=== PATIENT | female | born 1955 | race Caucasian/White ===

== ENCOUNTER 2018-06-10 12:07 | Observation (INO) | payer MEDICARE ==
[~2018-06-10] VITALS: Ht 152.4 cm; Wt 75.0 kg
--- NOTE | ~2018-06-10 | OP ---
PATIENT NAME: JOB TURNER MEDICAL RECORD: [id number] :51 LOCATION:[facility] ADMISSION DATE:06/10/18 SURGEON: SY STEWART MD DATE OF OPERATION: 06/12/2018 PROCEDURES: 1. PTCA stent RCA. 2. Left heart catheterization. 3. Selective coronary angiography. 4. Left ventriculogram. 5. CHILD angiography. 6. Vein graft angiography. INDICATION: Angina and coronary artery disease. PROCEDURE PERFORMED: After informed consent was obtained and after a detailed description of risks, benefits as well as alternative therapies, the patient elected to proceed with angiogram and angioplasty. The right femoral area was prepped and draped in normal sterile fashion. Right femoral artery was cannulated via modified Seldinger technique with placement of 6-Turkmen sheath. All catheters exchanged through this sheath. FINDINGS: Left ventriculogram was performed in standard 30-degree EASTMAN view, reveals good cardiac wall motion throughout all segments. Overall ejection fraction estimated at 70%. SELECTIVE CORONARY ANGIOGRAPHY: 1. Left main is with no significant angiographic disease. 2. Left anterior descending is closed in the mid vessel. 3. Left circumflex is closed in mid vessel. 4. CHILD to the LAD is patent. 5. Vein graft to the LAD diagonal is patent. 6. Vein graft to the circumflex is patent. 7. The right coronary artery has previously placed stent in the PDA. This is widely patent. There is greater than 70% stenosis in the PLV. PTCA STENT OF THE PLV: Stent used was a 2.5 x 22 mm Leander. Result was 0% residual stenosis. OVERALL IMPRESSION: Successful percutaneous transluminal coronary angioplasty stent of the right coronary artery going from 70+ percent initial stenosis to 0% residual. TRANSINT:[id number] Voice Confirmation ID: [id number] DOCUMENT ID: [id number] SY STEWART MD CC: [id number] DICTATION DATE: 06/12/18 0944 RIVET CATCHER: 06/12/18 1121 [place] [address]
--- NOTE | ~2018-06-10 | DS ---
PATIENT:JOB TURNER :51 MEDICAL RECORD: [id number] DISCHARGE SUMMARY ADMISSION DATE: 06/10/18 DISCHARGE DATE: 06/12/18 DATE OF DISCHARGE: 06/12/2018 DISCHARGE DIAGNOSES: 1. Angina. 2. Coronary artery disease. 3. Percutaneous transluminal coronary angioplasty stent right coronary artery this admission. 4. Hypertension. 5. Hyperlipidemia. HOSPITAL COURSE: Mrs. Turner presents with anginal symptomatology, found to have significant disease of the RCA, underwent successful PTCA stent of the RCA, discharged home with no change in her medications as she already on aspirin and Plavix. Follow up with [facility] in [facility] month. TRANSINT:[id number] Voice Confirmation ID: [id number] DOCUMENT ID: [id number] SY STEWART MD CC: [id number] DICTATION DATE: 06/12/18941 STACKER ATTENDANT: 06/13/18 0138 DIS IN 06/12/18 [place] [id number] [place] [id number]
--- NOTE | ~2018-06-10 | HEMODYNAMI ---
PATIENT:JOB TURNER MEDICAL RECORD: [id number] : 51 LOCATION:[facility] D.2120 ADMISSION DATE: 06/10/18 Generatedon:06/12/20189:47 Patient name: JOB TURNER Patient #: [id number] SSN: : 1955 Date of study: 06/12/2018 Page: Of Hemodynamic Procedure Report Patient Data Patient Demographics Procedure consent was obtained First Name: JOB Gender: Female Last Name: JOHNNY : 1955 Middle Initial: A Age: 62 year(s) Patient #: [id number] Race: Unknown Additional ID: [id number] Contact details Address: [place] [address] State: [place] City: [place] Zip code: [address] Past Medical History Allergies Allergen Reaction Date Comments Reported Codeine 06/12/2018 Admission Admission Data Admission Date: 06/10/2018 Admission Time: 15:05 Room #: [facility] Procedure Procedure Types Cath Procedure Diagnostic Procedure [facility] w/Coronaries PCI Procedure Coronary Stent Coronary Stent Initial Procedure Description Procedure Date Procedure Date: 06/12/2018 Procedure Start Time: 9:29 Procedure End Time: 9:43 Procedure Staff Name Function Moncho Shay MD Performing Physician Juanita Blackmon RT Monitor Jae Estrada RT Scrub Jackson Robertson RN Nurse Procedure Data Cath Procedure Fluoroscopy Diagnostic fluoroscopy Total fluoroscopy Time: 4.4 time: 4.4 min min Diagnostic fluoroscopy Total fluoroscopy dose: 749 dose: 749 mGy mGy Contrast Material Contrast Material Type Amount (ml) Isovue 300 93 Entry Location Entry Primary Successful Side Size Upsize Upsize Entry Closure Succes sful Closure Location (Fr) 1 (Fr) 2 (Fr) Remarks Device Remarks Femoral Right 5 Fr 6 Fr Exoseal artery Short Diagnostic catheters Device Type Used For End Catheter Placement MULTIPACK Pigtail 5 Fr LV Angiography catheter MULTIPACK JL 4.0 5Fr Left Coronary catheter Angiography MULTIPACK 3DRC 5Fr Right Coronary catheter Angiography DIAGNOSTIC AR2 MOD 5 Fr SVG Angiography catheter ([id number]) Procedure Complications No complications Procedure Medications Medication Administration Route Dosage 0.9% NaCl I.V. 100 ml/hr Oxygen etCO2 Nasal cannula 2 l/min Heparin Flush Bag added to field 2 bags (1000units/500ml NS) Lidocaine 2% added to field 20 Versed I.V. 2 mg Fentanyl I.V. 100 mcg Versed I.V. 1 mg Heparin Bolus I.V. 4000 units Integrilin (Bolus I.V. 6.8 ml 2mg/ml) Integrilin (Bolus wasted 3.2 ml 2mg/ml) Plavix P.O. 600 mg Hemodynamics Rest Heart Rate: 69 (bpm) Snapshots Pre Cath Intra NCS Post Cath Vital Signs Time Heart Resp SPO2 etCO2 NIBP (mmHg) Rhythm Pain Sedation Rate (ipm) (%) (mmHg) Status Level (bpm) 8:35:53 69 13 98 44.7 118/78(101) NSR 0 (11) 10(A) , No pain 8:39:57 67 17 96 24.2 122/80(102) NSR 0 (11) 10(A) , No pain 8:43:59 69 19 95 27.2 131/96(111) NSR 0 (11) 10(A) , No pain 8:48:06 68 11 95 22.7 132/83(116) NSR 0 (11) 10(A) , No pain 8:52:17 69 11 95 13.6 136/77(121) NSR 0 (11) 10(A) , No pain 8:56:28 70 12 96 42.4 133/79(117) NSR 0 (11) 10(A) , No pain 9:00:36 74 14 96 47.7 133/85(107) NSR 0 (11) 10(A) , No pain 9:04:44 75 12 96 47.7 132/83(109) NSR 0 (11) 10(A) , No pain 9:08:52 73 13 96 46.9 129/85(108) NSR 0 (11) 10(A) , No pain 9:12:57 70 13 96 21.9 134/88(105) NSR 0 (11) 10(A) , No pain 9:17:07 70 13 97 27.2 129/80(109) NSR 0 (11) 10(A) , No pain 9:21:17 69 10 93 30.3 129/77(114) NSR 0 (11) 10(A) , No pain 9:25:21 68 19 95 13.6 138/98(118) NSR 0 (11) 10(A) , No pain 9:29:29 74 19 95 46.2 148/99(124) NSR 0 (11) 9(A) , No pain 9:33:41 74 19 96 41.6 139/93(119) NSR 0 (11) 9(A) , No pain 9:37:49 71 11 96 0 136/100(114) NSR 0 (11) 10(A) , No pain 9:41:57 77 13 97 8.3 144/91(114) NSR 0 (11) 10(A) , No pain Medications Time Medication Route Dose Verified Delivered Reason Notes Effectiveness by by 8:34:08 0.9% NaCl I.V. 100 Jackson Jackson Per physician ml/hr Marcelo Robertson RN RN 8:34:17 Oxygen etCO2 2 Jackson Jackson for low 02 sats Nasal l/min Marcelo Robertson cannula RN RN 8:34:29 Heparin Flush added 2 Jackson Jackson used for Bag to bags Marcelo Robertson procedure (1000units/500ml RN RN NS) 8:34:40 Lidocaine 2% added 20ml Jackson Jackson for local to vial Marcelo Robertson anesthetic RN RN 9:20:18 Versed I.V. 2 mg Jackson Jackson for sedation Marcelo Robertson RN RN 9:20:27 Fentanyl I.V. 100 Jackson Jackson for sedation mcg Marcelo Robertson RN RN 9:29:53 Versed I.V. 1 mg Jackson Jackson for sedation Marcelo Robertson RN RN 9:38:44 Heparin Bolus I.V. 4000 Jackson Jackson for units Marcelo Robertson anticoagulation RN RN 9:39:01 Integrilin I.V. 6.8 Jackson Jackson for (Bolus 2mg/ml) ml Marcelo Robertson antiplatelet RN RN therapy 9:39:11 Integrilin wasted 3.2 Jackson Jackson to sharp's (Bolus 2mg/ml) ml Marcelo Robertson RN RN 9:45:35 Plavix P.O. 600 Jackson Paz for mg Marcelo Robertson antiplatelet RN RN therapy Procedure Log Time Note 8:18:42 Diagnostic Cath Status : Elective 8:19:10 Jae Estrada RT(R) sent for patient. Start room use. 8:19:10 Time tracking: Regular hours (M-F 7:00 - 5:00) 8:19:15 Plan of Care:Hemodynamics will remain stable., Cardiac rhythm will remain stable., Comfort level will be maintained., Respiratory function will remain adequate., Patient/ family verbilizes understanding of procedure., Procedure tolerated without complication., Recovers from procedure without complications.. 8:23:15 Patient received from Med II to [facility] 2 Alert and oriented. Tansferred to table in Supine position. 8:23:17 Warm blankets applied, and gail hugger turned on for patient comfort. 8:23:17 Correct patient and procedure confirmed by team. 8:23:20 Signed procedure consent form obtained from patient. 8:23:22 ECG and BP/O2 sat monitors applied to patient. 8:34:08 0.9% NaCl 100 ml/hr I.V. was administered by Jackson Robertson RN; Per physician; 8:34:17 Oxygen 2 l/min etCO2 Nasal cannula was administered by Jackson Robertson RN; for low 02 sats; 8:34:29 Heparin Flush Bag (1000units/500ml NS) 2 bags added to field was administered by Jackson Robertson RN; used for procedure; 8:34:40 Lidocaine 2% 20ml vial added to field was administered by Jackson Robertson RN; for local anesthetic; 8:34:47 Vital chart was started 8:45:03 Baseline sample Acquired. 8:45:06 Rhythm: sinus rhythm 8:45:08 Full Disclosure recording started 8:45:17 H&P Date Dictated: 06/12/2018 Within 30 days and on chart.. 8:45:18 Pre-procedure instructions explained to patient. 8:45:19 Pre-op teaching completed and patient verbalized understanding. 8:45:21 Family in patients room. 8:45:23 Patient NPO since Midnight. 8:45:29 Patient allergic to Codeine 8:45:33 Is the patient allergic to Iodine/contrast media? No. 8:45:37 Was the patient premedicated? No 8:54:25 Is patient on blood thinner?Yes 8:54:40 Patient diabetic? No. 8:54:41 ----Pre-sedation anethsthesia assessment.---- 8:54:44 Previous problem with sedation/anesthesia? No ? 8:54:45 Snore? No 8:54:46 Sleep apnea? No 8:54:47 Deviated septum? No 8:54:49 Opens mouth fully? Yes 8:54:50 Sticks out tongue? Yes 8:54:52 Airway obstruction? No ? 8:54:54 Dentures? No ? 8:54:56 Pre procedure: right dorsailis pedis pulse 2+ Normal; easily identifiable; not easily obliterated 8:54:59 Patient pain scale 0/10 ?. 8:55:03 IV patent on arrival in right antecubital with 0.9% NaCl at 10ml/hr. 8:55:13 Lab results completed and on chart. 8:55:17 Right groin area was prepped with chlora-prep and draped in sterile fashion 8:55:18 Alarms reviewed by R. N. 8:55:18 Sharps counted by scrub and verified by R.N. 8:55:23 Use device set Femoral Dx 8:55:24 ACIST Syringe (48896) opened to sterile field. 8:55:25 Bag Decanter (2002S) opened to sterile field. 8:55:25 Medline Cath Pack ([id number]) opened to sterile field. 8:55:26 DIAGNOSTIC WIRE .035 260cm J wire (269228) opened to sterile field. 8:55:27 ACIST Hand Control (88436) opened to sterile field. 8:55:28 ACIST Manifold (29694) opened to sterile field. 8:55:28 DIAGNOSTIC Multipack 5Fr catheter set (ES2395) opened to sterile field. 8:55:29 Tegaderm 4 x 4 (1626W) opened to sterile field. 8:55:31 SHEATH 5FR Calera (QPW507) opened to sterile field. 9:19:04 Physician arrived 9:19:06 --------ALL STOP TIME OUT------ 9:19:06 Final Timeout: patient, procedure, and site verified with staff and physician. All members of the team are in agreement. 9:19:09 Right groin site verified by team. 9:19:14 Maximum allowable Isovue 300 dose 300ml. Physician notified. (300ml for normal creatinines. For patients with creatinine of 1.7 or higher multiply weight(kg) x 5 divided by creatinine.) 9:19:20 Fire Safety Assessment: A--An alcohol-based skin anteseptic being used preoperatively., C--Open oxygen or nitrous oxide is being used., D--An ESU, laser, or fiber-optic light is being used. 9:19:23 Physical assessment completed. ASA score P 2 - A patient with mild systemic disease as per Moncho Shay MD. ::27 Sedation plan: IV Moderate Sedation Medication:Versed, Fentanyl 9::18 Versed 2 mg I.V. was administered by Jackson Robertson RN; for sedation; ::27 Fentanyl 100 mcg I.V. was administered by Jackson Robertson RN; for sedation; 9:28:47 Procedure started. 9:29:10 Local anesthetic to right femoral artery with Lidocaine 2% by Moncho Shay MD.INITIAL ACCESS ONLY 9:29:19 A 5 Fr sheath was inserted into the Right Femoral artery 9::27 A MULTIPACK Pigtail 5 Fr catheter was advanced over the wire and used for LV Angiography. 9:29:34 LV angiography performed. 9:29:36 LV gram done using EASTMAN 9:29:45 Zero performed for pressure channel P1 9:29:53 Versed 1 mg I.V. was administered by Jackson Robertson RN; for sedation; 9:30:15 EF : 70 % 9:30:21 Catheter removed. 9:30:27 A MULTIPACK JL 4.0 5Fr catheter was advanced over the wire and used for Left Coronary Angiography. 9:30:30 LCA angiography performed. 9:31:11 Catheter removed. 9:31:28 A MULTIPACK 3DRC 5Fr catheter was advanced over the wire and used for Right Coronary Angiography. 9:32:14 CHILD to LAD angiography performed. 9:32:30 RCA angiography performed. 9:33:26 SVG to Circ angiography performed. 9:33:54 INFLATOR Merit BasixCompak (HI3828) opened to sterile field. 9:33:54 SHEATH 6FR Calera (RTK736) opened to sterile field. 9:33:55 CHOICE PT Extra Support 182cm wire ([id number]) opened to sterile field. 9:34:11 Catheter removed. 9:34:30 A DIAGNOSTIC AR2 MOD 5 Fr catheter ([id number]) was advanced over the wire and used for SVG Angiography. 9:34:43 SVG to Diag angiography performed. 9:34:45 Catheter removed. 9:35:05 Sheath upsized to a 6 Fr Short. 9:35:49 GUIDE 6FR AR 2.0 catheter ([id number]) opened to sterile field. 9:35:59 6 Fr AR 2 guide catheter was inserted over the wire 9:36:03 CPTES wire advanced. 9:38:44 Heparin Bolus 4000 units I.V. was administered by Jackson Robertson RN; for anticoagulation; 9:39:01 Integrilin (Bolus 2mg/ml) 6.8 ml I.V. was administered by Jackson Robertson RN; for antiplatelet therapy; 9:39:11 Integrilin (Bolus 2mg/ml) 3.2 ml wasted was administered by Jackson Robertson RN; to sharp's; 9:39:33 Place stent Inflation Number: 1 A DICK RX 2.5 x 22 stent ([id number]) was prepped and advanced across the R PAV. The stent was deployed at 15 LUIS for 0:14 (min:sec). 9:39:47 Inflation number: 2 The stent balloon was then re-inflated across the R PAV to 15 LUIS for 0:12 (min:sec). 9:39:51 Stent catheter was removed intact over wire. 9:39:52 Wire removed. 9:39:55 Guide catheter removed. 9:40:03 Sheath removed intact; hemostasis achieved with Exoseal to the Right Femoral artery. 9:40:10 EXOSEAL 6Fr (EX600) opened to sterile field. 9:40:32 Procedure ended.(Physican Out) 9:42:19 Procedure type changed to Cath procedure, Diagnostic procedure, LHC, LHC w/Coronaries, PCI procedure, Coronary Stent, Coronary Stent Initial 9:42:43 Fluoroscopy time 04.40 minutes. 9:42:48 Fluoroscopy dose: 749 mGy 9:42:48 Flurop Dose total: 749 9:42:54 Contrast amount:Isovue 300 93ml. 9:42:55 Sharps counted by scrub and verified by R.N. 9:42:56 Insertion/operative site no bleeding no hematoma. 9:42:59 Post-op/insertion site Right Femoral artery dressed using a 4 x 4 and Tegaderm. 9:43:02 Post right femoral artery:stable 9:43:03 Post Procedure Pulses reassessed and unchanged 9:43:06 Post procedure: right dorsailis pedis pulse 2+ Normal; easily identifiable; not easily obliterated. 9:43:09 Post procedure rhythm: sinus rhythm 9:43:11 Post procedure instruction explained to patient.Patient verbalizes understanding. 9:43:11 Procedure and supply charges have been captured, reviewed, submitted and are correct. 9:43:15 Procedure Complication : No complications 9:43:17 Vital chart was stopped 9:43:18 See physician's report for complete and final results. 9:43:19 Report given to Pre/Post Procedure Room. 9:43:22 Patient transfered to Pre/Post Procedure Room with Stretcher. 9:43:24 Procedure ended. 9:43:24 Full Disclosure recording stopped 9:43:32 ACC-PCI Only Patient was given prescriptions, or instructed by Moncho Shay MD to start/continue the following medications upon discharge: Plavix 9:43:33 End room use (Document Last) 9:45:35 Plavix 600 mg P.O. was administered by Jackson Robertson RN; for antiplatelet therapy; Intervention Summary Intervention Notes Time ActionType Lesion and Equipment Used Action# Pressure Duration Attributes 9:39:33 Place stent R PAV DICK RX 2.5 x 1 15 00:14 22 stent ([id number]) 9:39:47 Reinflate R PAV DICK RX 2.5 x 2 15 00:12 stent 22 stent balloon ([id number]) Device Usage Item Name Manufacture Quantity Catalog Number Hospital Part Current M inimal Lot# / Charge Number Stock Stock Serial# Code ACIST Syringe Acist 1 52904 865309 572863 991066 2 0 (53700) Medical TextMaster Inc Bag Decanter Microtek 1 225654 65527 883872 5 () Medical Inc. Medline Cath Medline 1 [id number] 074549 18304 320797 5 Pack ([id number]) DIAGNOSTIC St Mark 1 406036 592554 566778 059844 3 0 WIRE .035 260cm J wire (855180) ACIST Hand Acist 1 41536 279486 537293 224006 5 Control Medical (46730) Systems Inc ACIST Manifold Acist 1 01037 054779 301153 051552 5 (56432) Medical Systems Inc DIAGNOSTIC Cardinal 1 BI9109 517913 65257 819268 3 0 Multipack 5Fr Health catheter set (DT7926) Tegaderm 4 x 4 3M 1 1626W 103882 140661 832928 5 (1626W) SHEATH 5FR Terumo 1 NDK037 436466 391065 849930 5 Calera (MFC757) MULTIPACK Cardinal 1 183158 5 Pigtail 5 Fr Health catheter MULTIPACK JL Cardinal 1 063740 5 4.0 5Fr Health catheter MULTIPACK 3DRC Cardinal 1 098034 5 5Fr catheter Health INFLATOR Merit Merit 1 EZ3673 856191 478982 829782 1 5 ePAR (MS2677) SHEATH 6FR Terumo 1 NDG544 573397 023574 509537 4 0 Calera (TSX239) CHOICE PT [place] 1 [id number] 471363 307682 437148 5 Extra Support Scientific 182cm wire ([id number]) DIAGNOSTIC AR2 Cardinal 1 183691V 602732 503898 296569 2 0 MOD 5 Fr Health catheter (285374N) GUIDE 6FR AR Medtronic 1 [id number] 038419 73163 409684 1 2.0 catheter (CF2XJ28) DICK RX 2.5 x Medtronic 1 [id number] 472675 4149423 328214 5 [id number] 22 stent ([id number]) EXOSEAL 6Fr Cardinal 1 EX600 219920 575108 869294 1 0 (EX600) Health Signature Audit [place] Stage Time Signature Unsigned Intra-Procedure 06/12/2018 Jae Estrada RT(Danie) 9:47:30 AM Signatures Monitor : Juanita Blackmon RT Signature : Date : Time : [place] [address] [place] [address]
[2018-06-10 14:15] VITALS: BP 122/71
[2018-06-10 15:30] VITALS: BP 122/75
[2018-06-10] MEDS ORDERED: NORVASC10 MG PO (16:31)
[2018-06-10] MEDS ORDERED: CARAFATE1 G PO (16:32)
[2018-06-10] MEDS ORDERED: ISOSORBIDE MONO60 M1 (16:36)
[2018-06-10] MEDS ORDERED: CRESTOR5 MG PO (16:37)
[2018-06-10] MEDS ORDERED: PHENERGAN25 M1 PO (16:39)
[2018-06-10] MEDS ORDERED: PLAVIX75 MG PO (16:40)
[2018-06-10] MEDS ORDERED: PROTONIX40 MG PO (16:41)
[2018-06-10] MEDS ORDERED: MIRALAX17 GM PO (16:43)
[2018-06-10] MEDS ORDERED: THEREMS-M1 TAB PO (16:44)
[2018-06-10] MEDS ORDERED: NITROQUICK0.4 MG SL (16:46)
[2018-06-10] MEDS ORDERED: BAYER CHEWABLE81 MG PO (16:47)
[2018-06-10] MEDS ORDERED: FISH OIL 1,0001 CA1 PO (16:47)
--- NOTE | 2018-06-10 17:00 | NUR ---
RECIEVED FROM ER. ALERT AND ORIENTED. O2 AT 2L/M PER NC. TELEMERTY SHOWS SR 61. NO NEEDS VOICED. FAMILY AT BEDSIDE
--- NOTE | 2018-06-10 17:49 | NUR ---
DENIES ANY CHEST DISCOMFORT AT PRESENT TIME. TELEMERTY SHOWS SR. SR UP WITH CALL LIGHT IN REACH.WILL MONITOR
[2018-06-10 17:52] VITALS: Ht 152.4 cm; Wt 75.0 kg
--- NOTE | 2018-06-10 17:52 | NUR ---
ASSESSMENT COMPLETE PT DENIES ANY NEEDS OR DISCOMFOR AT THIS TIME RFA SALINE LOCK INTACT SITE FREE OF REDNESS OR EDEMA RESP UNLABORED SKIN W/D TELEMETRY PLACE SR RATE 61 WILL CONTINUE TO MONITR
[2018-06-10 19:55] VITALS: BP 111/67
--- NOTE | 2018-06-10 22:16 | NUR ---
INITIAL ROUNDS COMPLETED AT 1910 HRS. PT HAD C/O CP AND NAUSEA. MORPHINE 2MG, ZOFRAN 4MG SIVP GIVEN. ASSESSMENT COMPLETED AT 2014 HRS. VSS. SR PER CM HR 63. IV TO R WRIST SL. ALERT AND ORIENTED TO PERSON, PLACE AND TIME. GARCIA. LUNGS DIMINISHED IN BASES BILAT. O2 2LNC. SPOUSE AT BEDSIDE. PT CURRENTLY RESTING WITH EYES CLOSED. RESP EVEN AND REGULAR. SR UP X2, CALL LIGHT WITHIN REACH.
[2018-06-10 23:55] VITALS: BP 110/70
--- NOTE | 2018-06-11 00:27 | NUR ---
PT RESTING WITH EYES CLOSED. RESP EVEN AND REGULAR. SR UP X2, CALL LIGHT WITHIN REACH.
--- NOTE | 2018-06-11 03:07 | NUR ---
PT RESTING WITH EYES CLOSED. RESP EVEN AND REGULAR. SR UP X2, CALL LIGHT WITHIN REACH.
[2018-06-11 03:55] VITALS: BP 104/71
--- NOTE | 2018-06-11 04:29 | NUR ---
PT RESTING WITH EYES CLOSED. RESP EVEN AND REGULAR. SR UP X2, CALL LIGHT WITHIN REACH.
--- NOTE | 2018-06-11 05:00 | NUR ---
MORPHINE 2MG. ZOFRAN 4MG SIVP GIVEN FOR C/P CP AND NAUSEA. SPOUSE AT BEDSIDE.
--- NOTE | 2018-06-11 06:25 | NUR ---
VSS THROUGHOUT NIGHT. SR PER CM. PT STATED IV MORPHNE ONLY RELIVED HER CP A LITTLE BIT. NEEDS MET; WILL CONTINUE TO MONITOR.
--- NOTE | 2018-06-11 07:28 | NUR ---
ALERT AND ORIENTED. TELEMERTY SHOWS SR 72. RIGHT FA SL. LUNGS DIMISHED. NPO UNTILL SEEN BY INSURANCE CLAIMS ANALYST. DENIES ANY PAIN
[2018-06-11 08:51] VITALS: BP 154/76
--- NOTE | 2018-06-11 10:38 | NUR ---
AGREE WITH EYELET RIVETER ASSESSMENT
--- NOTE | 2018-06-11 14:24 | NUR ---
EYES CLOSED RESTING QUIETLY. TELEMERTY SHOWS SR. FAMILY AT BEDSIDE
[2018-06-11 14:43] VITALS: BP 144/76
--- NOTE | 2018-06-11 21:51 | NUR ---
INITIAL ROUNDS COMPLETED AT 1909 HRS. PT TALKING ON PHONE, DENIES ANY DISCOMFORT. ASSESSMENT COMPLETED AT 2049 HRS. VSS. SR PER CM HR 65. IV TO RFA SL. ALERT AND ORIENTED TO PERSON, PLACE AND TIME. O2 2LNC. LUNGS DIMINISHED IN BASES BILAT. ABD DISTENDED WIHT ACTIVE BS NOTED. HAS C/O CONSTIPATION. PRUNE JUICE COCKTAIL GIVEN. PT CURRENTLY RESTING WITH EYES CLOSED. RESP EVEN AND REGULAR. SR UP X2, CALL LIGHT WITHIN REACH AND SPOUSE AT BEDSIDE.
[2018-06-11 21:53] VITALS: BP 115/70
--- NOTE | 2018-06-12 00:24 | NUR ---
MORPHINE 2MG, ZOFRAN 4MG SIVP GIVEN FOR C/O CP AND NAUSEA. CALL LIGHT WITHIN REACH.
--- NOTE | 2018-06-12 02:21 | NUR ---
PT RESTING WITH EYES CLOSED. RESP EVEN AND REGULAR. SR UP X2, CALL LIGHT WITHIN REACH.
--- NOTE | 2018-06-12 04:25 | NUR ---
PT RESTING WITH EYES CLOSED. RESP EVEN AND REGULAR. SR UP X2, CALL LIGHT WITHIN REACH.
[2018-06-12 04:53] VITALS: BP 108/73
[2018-06-12 06:13] LABS: CALC OSMOLALITY 279 mosm/kg (275-300); CALCIUM 8.2 mg/dL (8.5-10.1); CARBON DIOXIDE 27.1 mmol/L (21.0-32.0); CHLORIDE - SERUM 105 mmol/L (98-107); CREATININE - SERUM 0.7 mg/dL (0.6-1.3); GLUCOSE 89 mg/dL (74-106); SODIUM 141 mmol/L (136-145); UREA NITROGEN 12 mg/dL (7-18); eGFR NON AFRICAN AMERICAN 89 mL/min (90-120)
[2018-06-12 06:28] LABS: BASOPHILS 0.2 % (0-2); EOSINOPHILS 2.3 % (0-7); HEMATOCRIT 37.9 % (36.0-48.0); HEMOGLOBIN 11.8 g/dL (12-16); IMMATURE GRANULOCYTES 0.2 % (0-5); LYMPHOCYTES 12.8 % (15-50); MCH 26.2 pg (26.0-34.0); MCHC 31.1 g/dL (31.0-37.0); MCV 84.2 fL (80.0-100.0); MEAN PLATELET VOLUME 9.2 fL (7.4-10.4); MONOCYTES 19.3 % (2-11); NEUTROPHILS 65.2 % (40-80); PLATELET COUNT 394 10x3/uL (130-400); RDW 13.7 % (11.5-14.5); WBC 8.4 10x3/uL (4.8-10.8)
--- NOTE | 2018-06-12 06:38 | NUR ---
VSS THROUGHOUT NIGHT. SR/SB PER CM. PT STATED IV MORPHINE AND ZOFRAN HELPED CP AND NAUEAS. PT CURRENTLY IN BR WASHING UP . NPO FOR AM LHC. NEEDS MET; WILL CONTINUE TO MONITOR.
--- NOTE | 2018-06-12 07:10 | NUR ---
ROUNDING DONE WITH PATIENT STANDING AT SINK BRUSHING HER TEETH. NPO FOR HEART CATH TODAY. ON HEART MONITOR SHOWING SR, HR 71. AT BEDSIDE. DENIES NEEDS OR CHEST PAIN AT THIS TIME.
--- NOTE | 2018-06-12 08:18 | NUR ---
TO TIPPLE REPAIRER VIA BED.
--- NOTE | 2018-06-12 09:47 | NUR ---
WAS INFORMED THAT PATIENT IS DISCHARGING FROM WATCHSTANDER RECOVERY.
--- NOTE | 2018-06-12 10:10 | NUR ---
PT RESTING COMFORTABLY. RIGHT GROIN DRESSING C/D/I. NO S/S OF HEMATOMA NOTED. RIGHT PEDAL PULSE PALPABLE. AT BEDSIDE. VSS.
--- NOTE | 2018-06-12 10:40 | NUR ---
RIGHT GROIN DRESSING C/D/I. NO S/S OF HEMATOMA NOTED. VSS. DENIES NAUSEA. DENIES PAIN.
--- NOTE | 2018-06-12 10:54 | EC ---
PATIENT:JOB TURNER DATE OF SERVICE: 06/10/18 SEX: F MEDICAL RECORD: [id number] DATE OF : [birth year] [facility] AGE OF PATIENT: 62 ADMISSION DATE: 06/10/18 REFERRING PHYSICIAN: INTERPRETING PHYSICIAN: SY SHAY MD ECHOCARDIOGRAM REPORT ECHO CHARGES 4 ECHO COMPLETE Date: 06/10/18 CLINICAL DIAGNOSIS: EFFUSION ECHOCARDIOGRAPHIC MEASUREMENTS (adult normal given) AC root (d.<3.7cm) 2.9 cm LV Septum d (<1.2 cm> 0.7 cm Valve Excursion 1.6 cm LV Septum (systole) 1.9 cm Left Atria (s.<4.0cm> 4.8 cm LVPW d(<1.2cm) 1.2 cm RV (d.<2.3cm) 2.8 cm LVPW (sytole) 1.4 cm LV diastole(<5.6CM) 5.2 cm MV E-F(>70mm/sec) cm LV systole 3.6 cm LVOT Diameter 2.0 cm MV exc.(>10mm) cm Est.ejection fraction (50-75%) % DOPPLER: LVIT cm/sec A 55 cm/sec E 57 cm/sec LA cm/sec RVSP 32.5 mmHg LVOT 83 cm/sec AOP1/2T m/s Asc. Ao 133 cm/sec RVOT 48 cm/sec RA cm/sec PA 117 cm/sec AV Gradient Peak 7.0 mmHg AV Mean 2.9 mmHg AV Area 2.0 cm MV Gradient Peak 2.8 mmHg MV Mean 1.4 mmHg MV Area cm COMMENTS: Heel Gummer: Isha MACKAYAUREL[facility]EN[facility] Contact Center Analyst: 1 Dr. Shay TAPE# PACS Pericardial Effusion Y DATE OF SERVICE: 06/10/2018 FINDINGS: 1. Left ventricular chamber size is within normal limits. Left ventricular systolic function is normal. Overall ejection fraction is estimated at 60%. 2. Left atrium is enlarged at 4.8 cm. Right atrium and right ventricle chamber sizes are within normal limit. 3. Valvular structures have normal structure and motion. 4. Doppler interrogation reveals mild mitral regurgitation and moderate tricuspid regurgitation. No other valvular insufficiency or stenosis. ECHOCARDIOGRAM REPORT [id number] JOB TURNER Pulmonary systolic pressure is preserved at 33 mmHg. 5. No evidence of pericardial effusion or left ventricular thrombus. TRANSINT:[id number] Voice Confirmation ID: [id number] DOCUMENT ID: [id number] SY SHAY MD at 1054 CC: [id number] DICTATION DATE: 06/11/18 1146 SLAB INSPECTOR: 06/11/18 1208 ADM IN [facility] [address] [place] [address]
--- NOTE | 2018-06-12 10:55 | HP ---
PATIENT: JOB TURNER MEDICAL RECORD: [id number] ACCOUNT: [id number] LOCATION:[facility] : 51 ADMISSION DATE: 06/10/18 PCP: PHYLLIS CUNNINGHAM HISTORY AND PHYSICAL EXAMINATION DIAGNOSES: 1. Unstable angina. 2. Coronary artery disease. 3. Status post coronary artery bypass graft surgery. 4. Status post multivessel PTCA and stent. 5. Valvular heart disease and mitral regurgitation. 6. Pericardial effusion. HISTORY: Mrs. Turner presents with unstable anginal symptomatology. Her troponin is normal. She continues to have episodes of chest pain. She does have a history of coronary artery bypass graft surgery in the distant past. She has undergone PTCA and stent at the [facility] since the bypass surgery with the last being approximately 2-3 years ago. She was said that she had an echocardiogram in late last year that showed a pericardial effusion. No followup has been done for that. PHYSICAL EXAMINATION: GENERAL APPEARANCE: Well-nourished, well-developed, appears stated age. Level of distress, comfortable. PSYCHIATRIC: Mental status, alert, normal affect. Orientation, oriented to time, place and person. EYES: Lids and conjunctiva, noninjected. No discharge, no pallor. ENT: Lips, teeth, gums, normal dentition. Oropharynx, no cyanosis, no pallor. NECK: Carotid arteries, bilateral normal upstroke, no bruits, no thrills. JUGULAR VEINS: No jugular venous pressure or distention. CERVICAL LYMPH NODES: Nontender, nonenlarged. THYROID: Not enlarged. Nontender. No nodules. LUNGS: Respiratory effort, unlabored. CHEST: Normal curvature. No thoracic deformity. No chest wall tenderness. Percussion, resonant. Auscultation, clear. No wheezes, no rales, no rhonchi. CARDIOVASCULAR: Precordial exam, nondisplaced. No heaves or pericardial thrills. Rate and rhythm, regular. Heart sounds, normal S1, normal S2. No S3, no gallop, no rub. Systolic murmur, not heard. Diastolic murmur, not heard. EXTREMITIES: No cyanosis, no edema. Peripheral pulses, full and equal in all extremities, except as noted. No bruits appreciated. ABDOMEN: Soft, nondistended. Normal aorta. No bruit. Nontender. No masses. Liver, nontender, no hepatomegaly. Spleen, nontender, no splenomegaly. MUSCULOSKELETAL: No joint tenderness. No joint swelling. No erythema. NEUROLOGICAL: Normal gait, normal strength, normal tone. SKIN: Warm and dry. OVERALL IMPRESSION: Chest pain in an unstable fashion. Her EKG shows nonspecific ST-T abnormalities. Troponin is normal. She continues to have chest pain. Most likely, she has recurrent hemodynamically significant coronary artery disease. We will admit. Get echocardiogram to evaluate the effusion. Plan for cardiac catheterization in the near future. TRANSINT:[id number] Voice Confirmation ID: [id number] DOCUMENT ID: [id number] HISTORY AND PHYSICAL [id number] JOB TURNER JEFFREY MD at 1055 CC: [id number] DICTATION DATE: 06/10/18 1302 ENFORCEMENT OFFICER: 06/10/18 1313 ADM IN [place] [id number] [place] [id number]
--- NOTE | 2018-06-12 11:05 | NUR ---
PT RESTING COMFORTABLY. VSS. RIGHT GROIN DRESSING C/D/I. NO S/S OF HEMATOMA NOTED.
--- NOTE | 2018-06-12 11:51 | NUR ---
PT C/O BACK PAIN. RATES IT 6/10 LOWER BACK. REPOSITIONED FOR COMFORT. VSS. WILL NOTIFY MD AND SEE ABOUT A PAIN MEDICATION.
--- NOTE | 2018-06-12 12:04 | NUR ---
NORCO GIVEN FOR PAIN. VSS. RIGHT GROIN DRESSING C/D/I. NO S/S OF HEMATOMA NOTED. RIGHT PEDAL PULSE PALPABLE. NO OTHER NEEDS AT THIS TIME. DR STEWART ROUNDED AND SPOKE WITH PT AND PT'S FAMILY.
--- NOTE | 2018-06-12 12:48 | NUR ---
PT REPORTS PAIN HAS IMPROVED. RATES IT 4/10 BACK PAIN. RIGHT GROIN DRESSING C/D/I. NO S/S OF HEMATOMA NOTED. HEAD OF BED INC TO 30 DEGREES. TOLERATED WELL. SET UP WITH SANDWICH TRAY AND DRINK.
--- NOTE | 2018-06-12 13:35 | NUR ---
PT C/O NAUSEA. ZOFRAN GIVEN ORDERED. WILL CONTINUE TO MONITOR. VSS. HOLDING OFF ON DISCHARGE UNTIL PT IS FEELING BETTER.
--- NOTE | 2018-06-12 14:01 | NUR ---
PT REPORTS FEELING BETTER AND READY TO GO HOME. RIGHT WRIST PIV D/C'D WITH CATH TIP INTACT. PT TOLERATED WELL. RIGHT GROIN DRESSING C/D/I. NO S/S OF HEMATOMA NOTED. PT INSTRUCTED TO GET UP AND GET DRESSED. FAMILY AT BEDSIDE TO ASSIST.
--- NOTE | 2018-06-12 14:10 | NUR ---
DISCUSSED DISCHARGE INSTRUCTIONS WITH PT AND PT'S FAMILY. THEY VOICED UNDERSTANDING.
--- NOTE | 2018-06-12 14:17 | NUR ---
PT TAKEN OUT TO VEHICLE BY WHEELCHAIR. NO S/S OF DISTRESS NOTED. ALL BELONGINGS AND PAPERWORK IN HAND.
== END 2018-06-12 14:17 | disposition home or self-care (01) ==
LOC: D.ER 12:07 → D.CLR 15:05 → D.M2 15:05 → OBSVTIME 17:12 → D.CLR 06-12 09:55
PROVIDERS: ADMIT Internal Medicine Interventional Cardiology; ATTEND Internal Medicine Interventional Cardiology
DX: I25.110 Atherosclerotic heart disease of native coronary artery with unstable angina pectoris (principal); Z95.5 Presence of coronary angioplasty implant and graft; Z95.1 Presence of aortocoronary bypass graft; I34.0 Nonrheumatic mitral (valve) insufficiency; I31.3 Pericardial effusion (noninflammatory); I10 Essential (primary) hypertension; E78.5 Hyperlipidemia, unspecified
CPT/HCPCS: 93459; C9600

== ENCOUNTER 2018-06-17 23:47 | Inpatient (IN) | payer MEDICARE ==
[~2018-06-17] VITALS: Ht 152.4 cm; Wt 74.4 kg
[~2018-06-17 23:47] MED LIST: BAYER CHEWABLE81 MG PO; CARAFATE1 G PO; CRESTOR5 MG PO; FISH OIL 1,0001 CA1 PO; ISOSORBIDE MONO60 M1 PO; MIRALAX17 GM PO; NITROQUICK0.4 MG SL; NORVASC10 MG PO; PHENERGAN25 M1 PO; PLAVIX75 MG PO; PROTONIX40 MG PO; THEREMS-M1 TAB PO
[2018-06-18] MEDS ORDERED: EFFEXOR XR75 MG PO (01:03)
--- NOTE | 2018-06-18 01:13 | NUR ---
RECEIVED FROM ER VIA WHEELCHAIR, A&O X4, MEDS REVIEWED, ADMISSION HISTORY IS COMPLTE, BED IS LOW, SRX2, CALL LIGHT IN REACH, TELEMTRY IS ON, AT BEDSIDE, WILL CONTINUE PLAN OF CARE
[2018-06-18 01:26] VITALS: BP 123/75; BMI 32.1
--- NOTE | 2018-06-18 01:39 | NUR ---
DIRECTOR ALUMNI RELATIONS ASSESSMENT COMPLETED. VSS. SR PER CM HR 84. IV TO RFA SL. ABD DISTENDED, TIGHT WITH VERY HYPOACTIVE BS NOTED. ABD TENDER TO TOUCH. STATED LAST BM 06/12/18. ABD TYMPANIC SOUNDING. STATES HAS BEEN VOMITING X 4 DAYS. SPOUSE AT BEDSIDE. SR UP X2,CALL LIGHT WITHIN REACH.
--- NOTE | 2018-06-18 03:02 | NUR ---
COMPLAINS OF NAUSA AND PAIN, GAVE MORPHINE AND ZOFRAN ORDER
[2018-06-18 04:30] VITALS: BP 115/66
[2018-06-18 09:22] VITALS: BP 123/75
[2018-06-18 12:32] LABS: INR 1.15 (0.85-1.17); PROTIME 14.2 SECONDS (11.6-15.0)
[2018-06-18 12:40] LABS: ALBUMIN 2.6 g/dL (3.4-5.0); ALKALINE PHOSPHATASE 81 U/L (46-116); ALT (SGPT) 17 U/L (10-68); CALC OSMOLALITY 273 mosm/kg (275-300); CALCIUM 8.2 mg/dL (8.5-10.1); CARBON DIOXIDE 25.2 mmol/L (21.0-32.0); CHLORIDE - SERUM 101 mmol/L (98-107); CREATININE - SERUM 0.7 mg/dL (0.6-1.3); GLUCOSE 80 mg/dL (74-106); POTASSIUM - SERUM 3.8 mmol/L (3.5-5.1); PROTEIN - SERUM 6.2 g/dL (6.4-8.2); SODIUM 137 mmol/L (136-145); UREA NITROGEN 14 mg/dL (7-18); eGFR NON AFRICAN AMERICAN 89 mL/min (90-120)
[2018-06-18 13:41] VITALS: BP 104/71
--- NOTE | 2018-06-18 15:49 | NUR ---
SCDS REFUSED AT THIS TIME
[2018-06-18 16:26] LABS: BASOPHILS 0.3 % (0-2); HEMATOCRIT 37.3 % (36.0-48.0); HEMOGLOBIN 11.7 g/dL (12-16); IMMATURE GRANULOCYTES 0.4 % (0-5); LYMPHOCYTES 15.4 % (15-50); MCH 26.1 pg (26.0-34.0); MCHC 31.4 g/dL (31.0-37.0); MCV 83.3 fL (80.0-100.0); MEAN PLATELET VOLUME 9.1 fL (7.4-10.4); NEUTROPHILS 73.9 % (40-80); PLATELET COUNT 401 10x3/uL (130-400); RBC 4.48 10x6/uL (4.00-5.40); RDW 13.7 % (11.5-14.5); WBC 10.1 10x3/uL (4.8-10.8)
[2018-06-18 16:30] LABS: APPEARANCE CLEAR (CLEAR); BILIRUBIN NEGATIVE (NEGATIVE); COLOR DK YELLOW (YELLOW); GLUCOSE NEGATIVE (NEGATIVE); KETONE LARGE mg/dL (NEGATIVE); NITRITE NEGATIVE (NEGATIVE); PROTEIN TRACE mg/dL (NEGATIVE); UROBILINOGEN NORMAL (NORMAL)
[2018-06-18 16:32] LABS: BACTERIA FEW /hpf (NONE SEEN); RED CELLS - URINE OCC /hpf (0-5); WHITE CELLS - URINE OCC /hpf (0-5)
[2018-06-18 17:32] VITALS: BP 119/71
[2018-06-18 20:00] VITALS: BP 125/75
[2018-06-19] VITALS (10 sets, daily range): BP systolic 107–161; BP diastolic 59–87; Ht 152.4 cm; Wt 74.4 kg
--- NOTE | 2018-06-19 02:12 | NUR ---
I have reviewed this patient and I concur with the Shift Assessment completed by the Licensed Practical Nurse today this shift.
--- NOTE | 2018-06-19 02:25 | NUR ---
RESTING WITH EYES CLOSED, RESPERATIONS EVEN. NO S/S DISTRESS NOTED.
--- NOTE | 2018-06-19 03:50 | NUR ---
CONSENTS SIGNED FOR CT GUIDED PARACENTESIS TO BE DONE.
[2018-06-19 05:33] LABS: BASOPHILS 0.2 % (0-2); EOSINOPHILS 1.4 % (0-7); HEMATOCRIT 38.8 % (36.0-48.0); HEMOGLOBIN 12.2 g/dL (12-16); IMMATURE GRANULOCYTES 0.5 % (0-5); LYMPHOCYTES 7.5 % (15-50); MCH 26.1 pg (26.0-34.0); MCHC 31.4 g/dL (31.0-37.0); MCV 82.9 fL (80.0-100.0); MEAN PLATELET VOLUME 9.7 fL (7.4-10.4); MONOCYTES 18.3 % (2-11); NEUTROPHILS 72.1 % (40-80); PLATELET COUNT 461 10x3/uL (130-400); RBC 4.68 10x6/uL (4.00-5.40); RDW 13.8 % (11.5-14.5); WBC 10.1 10x3/uL (4.8-10.8)
[2018-06-19 05:34] LABS: CALC OSMOLALITY 275 mosm/kg (275-300); CALCIUM 8.4 mg/dL (8.5-10.1); CARBON DIOXIDE 27.3 mmol/L (21.0-32.0); CHLORIDE - SERUM 101 mmol/L (98-107); CREATININE - SERUM 0.7 mg/dL (0.6-1.3); GLUCOSE 82 mg/dL (74-106); POTASSIUM - SERUM 3.6 mmol/L (3.5-5.1); SODIUM 138 mmol/L (136-145); UREA NITROGEN 14 mg/dL (7-18); eGFR NON AFRICAN AMERICAN 89 mL/min (90-120)
--- NOTE | 2018-06-19 13:53 | MORECARE ---
CASE MANAGEMENT DISCHARGE SUMMARY PATIENT: JOB TURNER UNIT: [id number] ADM DATE: 06/17/18 AGE: 62 : 53 SEX: F ROOM/BED: D.2103 AUTHOR: YARELI AGUILA PHYSICIAN: REFERRING PHYSICIAN: JAYLA ZARCO MD DATE OF SERVICE: 06/19/18 Discharge Plan Patient Name: JOB TURNER Facility: [facility]:[place] : 1955 Planned Disposition: Home Anticipated Discharge Date: Discharge Date: Expected LOS: Initial Reviewer: [email or web address] Initial Review Date: 06/20/2018 Generated: 06/19/18 2:52 pm Comments DCP- Discharge Planning Updated by [email or web address]: Belinda Rios on 06/19/18 10:[address] @ 1116, CALL TO THE MD CALL CENTER AT [facility] ([phone]) FOR POSSIBLE TRANSFER TO WAREHOUSE RECEIVING CLERK, ONCOLOGY SERVICES FOR SUSPICIOUS OVARIAN/FALLOPIAN MALIGNANCY. DR IRWIN AND DR BARONE FEEL THAT THE INTERVENTION SHE NEEDS CAN NOT BE PROVIDED HERE (I SPOKE WITH DEXTER ASIF RNGAS SINGER AND RECEIVED ADMINISTRATION APPROVAL UNDER MICHAEL COVARRUBIAS NAME). @ 1126 I SPOKE WITH SOFI WHO TOOK INFORMATION AND THEN I WAS TRANSFERRED TO MICHELLE ENRIQUE WHO TOOK DOWN CLINICAL INFORMATION AND DR BARONE'S INFORMATION (PER HER REQUEST IF DR IRWIN COULD NOT BE REACHED TO DO- SEE PREVIOUS NOTE). SHE STATED THAT SHE WILL SEE IF THE NURSE PRACTITIONER WANTED TO ACCEPTED, AND IF SO SHE WILL PUT HER IN CONTACT WITH DR BARONE AND THEN CALL ME BACK FOR INFORMATION TO FAX. I WILL AWAIT RETURN CALL. DCP- Discharge Planning Updated by [id number]: Belinda Rios on 06/19/18 8:[address] BARONE CAME TO [facility] ASKING US TO INITIATE TRANSFER TO [facility] REQUESTED IN DR IRWIN'S NOTE. SHE STATED SHE ALREADY TALKED TO BRIE MAR AND WE NEED TO GO AHEAD AND GET HER OUT. SHE STATED THAT IF FOR SOME REASON DR IRWIN WILL NOT DO THE DOC-TO-DOC, THEN SHE WOULD, BUT TO PLEASE TRY HIM FIRST. SHE DID SIGN THE PMS FORM FOR TRANSFER. I PLACED A CALL TO DR. IRWIN'S OFFICE, INITIALLY I PRESSED #3 TO SPEAK TO HIS NURSE KONSTANTIN, AND HER VOICEMAIL STATED THAT CALLS WOULD BE RETURNED WITHIN 48 HOURS. I HUNG UP AND CALLED THE OFFICE, PRESSING 0 TO TALK TO THE BREAKDOWN PERSON, AND SHE STATED THAT BOTH THE DOCTOR AND HIS NURSE WERE BUSY AND I WOULD HAVE TO JUST LEAVE A MESSAGE. I EXPLAINED THAT I DIDN'T DO THAT IN THE FIRST PLACE BECAUSE IT SAID CALLS WOULD BE RETURNED IN 48 HOURS AND WE WERE WORKING ON TRANSFERING THIS PATIENT. SHE STATED, "THAT IS ONLY IF YOU WANT TO TALK TO THE DOCTOR, KONSTANTIN WILL RETURN YOUR CALL SOONER THAN THAT". I LEFT A MESSAGE @ 0917. I WILL WAIT FOR A RETURN CALL, BUT IF NO CALL BACK RECEIVED WITHIN 1.5 HOURS, I WILL PROCEED WITH TRANSFER USING DR BARONE THE DOCTOR FOR DOC-TO-DOC. DCPIA - Discharge Planning Initial Assessment Updated by [id number]: Alverto Lopez on 06/19/18 1:50 pm * Is the patient Alert and Oriented? Yes * How many steps to enter\\exit or inside your home? * PCP [facility] [place] * Pharmacy [facility] [place] * Preadmission Environment Home with Family * ADLs Independent * Equipment Cane Walker * Other Equipment NO MEDICAL EQUIPMENT PROVIDER PREFERENCE * List name and contact numbers for known caregivers / representatives who currently or will assist patient after discharge: ALHAJI TURNER, SPOUSE, * Verbal permission to speak to the caregivers and representatives has been obtained from the patient. Yes * Community resources currently utilized None * Please name any agencies selected above. NONE * Additional services required to return to the preadmission environment? No * Can the patient safely return to the preadmission environment? Yes * Has this patient been hospitalized within the prior 30 days at any hospital? No Patient Name: JOB TURNER Page [id number] at 1353 All edits/amendments must be made on the electronic document DICTATION DATE: 06/19/18 135 ROUNDING AND BACKING MACHINE OPERATOR: HESHAM 06/19/181351 RPT#: [id number] DC DATE: STATUS: ADM IN [facility] [address] [place] [address] END OF REPORT
--- NOTE | 2018-06-19 14:15 | MORECARE ---
CASE MANAGEMENT DISCHARGE SUMMARY PATIENT: JOB TURNER UNIT: [id number] ADM DATE: 06/17/18 AGE: 62 : 53 SEX: F ROOM/BED: D.2103 AUTHOR: MINGODOC PHYSICIAN: REFERRING PHYSICIAN: JAYLA ZARCO MD DATE OF SERVICE: 06/19/18 Discharge Plan Patient Name: JOB TURNER Facility: [facility]:[place] : 1955 Planned Disposition: Home Anticipated Discharge Date: Discharge Date: Expected LOS: Initial Reviewer: [id number] Initial Review Date: 06/20/2018 Generated: 06/19/18 3:14 pm Comments DCP- Discharge Planning Updated by [email or web address]: Alverto Lopez on 06/19/18 1:[address] Patient Name: JOB TURNER Admission Status: ER Accout number: [id number] Admission Date: 06-17-2018 : 1955 Admission Diagnosis: Attending: JAYLA ZARCO Current LOS: 2 Anticipated DC Date: Planned Disposition: Home Primary Insurance: [facility] MEDICARE SOLUTIONS Discharge Planning Comments: CM SPOKE TO DR. BARONE WHO INFORMED CM THAT PT WILL NEED TRANSFER TO [facility] FOR DISK GRINDER - ONC CARE. CM MET WITH PT AND SPOUSE IN ROOM TO DISCUSS DISCHARGE PLANNING AND NEEDS. JOB TURNER provided verbal consent to discuss current and ongoing needs with/in the presence of: SPOUSE, ALHAJI. PT REPORTS LIVING AT HOME INDEPENDENTLY WITH SPOUSE. PT HAS CANE AND WALKER THAT SHE DOES NOT USE AND HAS NO MEDICAL EQUIPMENT PROVIDER PREFERENCE. PT HAS NO OUTSIDE SERVICES ASSISTING IN THE HOME. CM DISCUSSED AVAILABILITY OF HOME HEALTH, REHAB SERVICES AND MEDICAL EQUIPMENT. PT DENIES DISCHARGE NEEDS, REPORTS HER SPOUSE WILL PICK HER UP FOR DISCHARGE HOME. CM DISCUSSED TRANSFER TO [facility], PT REPORTS HAVING DISCUSSED WITH DOCTORS AND IS IN AGREEMENT FOR TRANSFER TO [facility]. CM WAITING DOCTORS TO DETERMINE IF TRANSFER TO [facility] IS NECESSARY AND MAKE NECESSARY ARRANGEMENTS FOR TRANSFER IF NEEDED. Artificial Flower Maker: Alverto Lopez DCP- Discharge Planning Updated by [id number]: Belinda Rios on 06/19/18 10:[address] @ 1386, CALL TO THE MD CALL CENTER AT [facility] ([phone]) FOR POSSIBLE TRANSFER TO DISK GRINDER, ONCOLOGY SERVICES FOR SUSPICIOUS OVARIAN/FALLOPIAN MALIGNANCY. DR IRWIN AND DR BARONE FEEL THAT THE INTERVENTION SHE NEEDS CAN NOT BE PROVIDED HERE (I SPOKE WITH DEXTER ASIF RNLIFE INSURANCE SPECIALIST AND RECEIVED ADMINISTRATION APPROVAL UNDER MICHAELEfrem COVARRUBIAS NAME). @ 1126 I SPOKE WITH SOFI WHO TOOK INFORMATION AND THEN I WAS TRANSFERRED TO MICHELLE ENRIQUE WHO TOOK DOWN CLINICAL INFORMATION AND DR BARONE'S INFORMATION (PER HER REQUEST IF DR IRWIN COULD NOT BE REACHED TO DO- SEE PREVIOUS NOTE). SHE STATED THAT SHE WILL SEE IF THE NURSE PRACTITIONER WANTED TO ACCEPTED, AND IF SO SHE WILL PUT HER IN CONTACT WITH DR BARONE AND THEN CALL ME BACK FOR INFORMATION TO FAX. I WILL AWAIT RETURN CALL. DCP- Discharge Planning Updated by [id number]: Belinda Rios on 06/19/18 8:[address] BARONE CAME TO [facility] ASKING US TO INITIATE TRANSFER TO [facility] REQUESTED IN DR IRWIN'S NOTE. SHE STATED SHE ALREADY TALKED TO BRIE MAR AND WE NEED TO GO AHEAD AND GET HER OUT. SHE STATED THAT IF FOR SOME REASON DR IRWIN WILL NOT DO THE DOC-TO-DOC, THEN SHE WOULD, BUT TO PLEASE TRY HIM FIRST. SHE DID SIGN THE PMS FORM FOR TRANSFER. I PLACED A CALL TO DR. IRWIN'S OFFICE, INITIALLY I PRESSED #3 TO SPEAK TO HIS NURSE KONSTANTIN, AND HER VOICEMAIL STATED THAT CALLS WOULD BE RETURNED WITHIN 48 HOURS. I HUNG UP AND CALLED THE OFFICE, PRESSING 0 TO TALK TO THE DIGITAL IMAGER, AND SHE STATED THAT BOTH THE DOCTOR AND HIS NURSE WERE BUSY AND I WOULD HAVE TO JUST LEAVE A MESSAGE. I EXPLAINED THAT I DIDN'T DO THAT IN THE FIRST PLACE BECAUSE IT SAID CALLS WOULD BE RETURNED IN 48 HOURS AND WE WERE WORKING ON TRANSFERING THIS PATIENT. SHE STATED, "THAT IS ONLY IF YOU WANT TO TALK TO THE DOCTOR, KONSTANTIN WILL RETURN YOUR CALL SOONER THAN THAT". I LEFT A MESSAGE @ 0917. I WILL WAIT FOR A RETURN CALL, BUT IF NO CALL BACK RECEIVED WITHIN 1.5 HOURS, I WILL PROCEED WITH TRANSFER USING DR BARONE THE DOCTOR FOR DOC-TO-DOC. DCPIA - Discharge Planning Initial Assessment Updated by [id number]: Alverto Lopez on 06/19/18 1:50 pm * Is the patient Alert and Oriented? Yes * How many steps to enter\\exit or inside your home? * PCP [facility] [place] * Pharmacy [facility] [place] * Preadmission Environment Home with Family * ADLs Independent * Equipment Cane Walker * Other Equipment NO MEDICAL EQUIPMENT PROVIDER PREFERENCE * List name and contact numbers for known caregivers / representatives who currently or will assist patient after discharge: ALHAJI TURNER, SPOUSE, * Verbal permission to speak to the caregivers and representatives has been obtained from the patient. Yes * Community resources currently utilized None * Please name any agencies selected above. NONE * Additional services required to return to the preadmission environment? No * Can the patient safely return to the preadmission environment? Yes * Has this patient been hospitalized within the prior 30 days at any hospital? No Last DP export: 06/19/18 12:52 p Patient Name: JOB TURNER Page [id number] at 1415 All edits/amendments must be made on the electronic document DICTATION DATE: 06/19/181413 DOCUMENT IMAGE TECHNICIAN: HESHAM 06/19/181413 RPT#: [id number] DC DATE: STATUS: ADM IN [facility] [address] [place] [address] END OF REPORT
[2018-06-19 18:06] LABS: MACROPHAGES BF 12 %; NEUT - BF 13 %
--- NOTE | 2018-06-19 19:38 | NUR ---
MORPHINE 2 MG AND ZOFRAN 4 MG GIVEN FOR C/O PAIN AND NAUSEA.
--- NOTE | 2018-06-19 20:27 | NUR ---
HS MEDS GIVEN WITH FRESH ICE WATER.
[2018-06-20] VITALS: BP 149/65
--- NOTE | 2018-06-20 01:26 | NUR ---
I have reviewed this patient and I concur with the Shift Assessment completed by the Licensed Practical Nurse today this shift.
[2018-06-20 04:30] VITALS: BP 118/70
[2018-06-20 07:31] LABS: CEA 0.5 ng/mL (0.0-4.7)
[2018-06-20 08:00] VITALS: BP 106/64
--- NOTE | 2018-06-20 08:12 | NUR ---
RESUMING PT CARE, PT IS LAYING IN BED ALERT AND ORIENTED. CALL LIGHT IN REACH, WILL CONTINUE TO MONITOR AND FOLLOW PLAN OF CARE.
--- NOTE | 2018-06-20 09:35 | NUR ---
CALLED [facility] DR. LIZ HEALY OFFICE TO CONFIRM APPT TODAY AT 3:00 PM. CONFIRMED BY TRUNG/DR. HEALY OFFICE.
--- NOTE | 2018-06-20 10:14 | MORECARE ---
CASE MANAGEMENT DISCHARGE SUMMARY PATIENT: JOB TURNER UNIT: [id number] ADM DATE: 06/17/18 AGE: 62 : 53 SEX: F ROOM/BED: D.2103 AUTHOR: YARELI AGUILA PHYSICIAN: REFERRING PHYSICIAN: JAYLA ZARCO MD DATE OF SERVICE: 06/20/18 Discharge Plan Patient Name: JOB TURNER Facility: [facility]:[place] : 1955 Planned Disposition: Outpatient clinics\\services (Programs) Anticipated Discharge Date: 06/20/18 Discharge Date: Expected LOS: 3 Initial Reviewer: [email or web address] Initial Review Date: 06/20/2018 Generated: 06/20/18 11:14 am Comments DCP- Discharge Planning Updated by [id number]: Alverto Vora on 06/20/18 9:[address] Patient Name: JOB TURNER Encounter No: [id number] : 1955 Primary Insurance: [facility] MEDICARE SOLUTIONS Anticipated DC Date: 06-20-2018 Planned Disposition: Outpatient clinics\\services (Programs) External Planned Provider: [facility] DCP follow-up note: CM ADVISED THAT PT WILL NOT TRANSFER TO [facility], BUT WILL TO [facility] CLINIC AFTER HOSPITAL DISCHARGE TODAY FOR FOLLOW UP CARE. CM SPOKE TO PT AND SPOUSE, BOTH IN AGREEMENT WITH PLAN. IMPORTANT MESSAGE FROM MEDIARE PROVIDED AND EXPLAINED. BRIE RODAS NOTIFIED. TICKETING AGENT NURSE PREVIOUSLY AWARE. ALVERTO VORA, CASE MANAGEMENT DCP- Discharge Planning Updated by [email or web address]: Alverto Vora on 06/19/18 1:[address] Patient Name: JOB TURNER Admission Status: ER Accout number: [id number] Admission Date: 06-17-2018 : 1955 Admission Diagnosis: Attending: JAYLA ZARCO Current LOS: 2 Anticipated DC Date: Planned Disposition: Home Primary Insurance: [facility] MEDICARE SOLUTIONS Discharge Planning Comments: CM SPOKE TO DR. BARONE WHO INFORMED CM THAT PT WILL NEED TRANSFER TO [facility] FOR [facility] - ONC CARE. CM MET WITH PT AND SPOUSE IN ROOM TO DISCUSS DISCHARGE PLANNING AND NEEDS. JOB TURNER provided verbal consent to discuss current and ongoing needs with/in the presence of: SPOUSE, ALHAJI. PT REPORTS LIVING AT HOME INDEPENDENTLY WITH SPOUSE. PT HAS CANE AND WALKER THAT SHE DOES NOT USE AND HAS NO MEDICAL EQUIPMENT PROVIDER PREFERENCE. PT HAS NO OUTSIDE SERVICES ASSISTING IN THE HOME. CM DISCUSSED AVAILABILITY OF HOME HEALTH, REHAB SERVICES AND MEDICAL EQUIPMENT. PT DENIES DISCHARGE NEEDS, REPORTS HER SPOUSE WILL PICK HER UP FOR DISCHARGE HOME. CM DISCUSSED TRANSFER TO [facility], PT REPORTS HAVING DISCUSSED WITH DOCTORS AND IS IN AGREEMENT FOR TRANSFER TO [facility]. CM WAITING DOCTORS TO DETERMINE IF TRANSFER TO [facility] IS NECESSARY AND MAKE NECESSARY ARRANGEMENTS FOR TRANSFER IF NEEDED. Director Of Marketing Operations: Alverto Vora DCP- Discharge Planning Updated by [id number]: Belinda Rios on 06/19/18 10:[address] @ 3416, CALL TO THE MD CALL CENTER AT [facility] ([phone]) FOR POSSIBLE TRANSFER TO [facility], ONCOLOGY SERVICES FOR SUSPICIOUS OVARIAN/FALLOPIAN MALIGNANCY. DR IRWIN AND DR BARONE FEEL THAT THE INTERVENTION SHE NEEDS CAN NOT BE PROVIDED HERE (I SPOKE WITH DEXTER ASIF RNTOY TRAINS AND ACCESSORIES SALESPERSON AND RECEIVED ADMINISTRATION APPROVAL UNDER MICHAEL COVARRUBIAS NAME). @ 1129 I SPOKE WITH SOFI WHO TOOK INFORMATION AND THEN I WAS TRANSFERRED TO MICHELLE ENRIQUE WHO TOOK DOWN CLINICAL INFORMATION AND DR BARONE'S INFORMATION (PER HER REQUEST IF DR IRWIN COULD NOT BE REACHED TO DO- SEE PREVIOUS NOTE). SHE STATED THAT SHE WILL SEE IF THE NURSE PRACTITIONER WANTED TO ACCEPTED, AND IF SO SHE WILL PUT HER IN CONTACT WITH DR BARONE AND THEN CALL ME BACK FOR INFORMATION TO FAX. I WILL AWAIT RETURN CALL. DCP- Discharge Planning Updated by [email or web address]: Belinda Rios on 06/19/18 8:[address] BARONE CAME TO [facility] ASKING US TO INITIATE TRANSFER TO [facility] REQUESTED IN DR IRWIN'S NOTE. SHE STATED SHE ALREADY TALKED TO BRIE MAR AND WE NEED TO GO AHEAD AND GET HER OUT. SHE STATED THAT IF FOR SOME REASON DR IRWIN WILL NOT DO THE DOC-TO-DOC, THEN SHE WOULD, BUT TO PLEASE TRY HIM FIRST. SHE DID SIGN THE PMS FORM FOR TRANSFER. I PLACED A CALL TO DR. IRWIN'S OFFICE, INITIALLY I PRESSED #3 TO SPEAK TO HIS NURSE KONSTANTIN, AND HER VOICEMAIL STATED THAT CALLS WOULD BE RETURNED WITHIN 48 HOURS. I HUNG UP AND CALLED THE OFFICE, PRESSING 0 TO TALK TO THE VEHICLE WINDOW TINTER, AND SHE STATED THAT BOTH THE DOCTOR AND HIS NURSE WERE BUSY AND I WOULD HAVE TO JUST LEAVE A MESSAGE. I EXPLAINED THAT I DIDN'T DO THAT IN THE FIRST PLACE BECAUSE IT SAID CALLS WOULD BE RETURNED IN 48 HOURS AND WE WERE WORKING ON TRANSFERING THIS PATIENT. SHE STATED, "THAT IS ONLY IF YOU WANT TO TALK TO THE DOCTOR, KONSTANTIN WILL RETURN YOUR CALL SOONER THAN THAT". I LEFT A MESSAGE @ 0917. I WILL WAIT FOR A RETURN CALL, BUT IF NO CALL BACK RECEIVED WITHIN 1.5 HOURS, I WILL PROCEED WITH TRANSFER USING DR BARONE THE DOCTOR FOR DOC-TO-DOC. DCPIA - Discharge Planning Initial Assessment Updated by [id number]: Alverto Vora on 06/19/18 1:50 pm * Is the patient Alert and Oriented? Yes * How many steps to enter\\exit or inside your home? * PCP [facility] [place] * Pharmacy [facility] [place] * Preadmission Environment Home with Family * ADLs Independent * Equipment Cane Walker * Other Equipment NO MEDICAL EQUIPMENT PROVIDER PREFERENCE * List name and contact numbers for known caregivers / representatives who currently or will assist patient after discharge: ALHAJI TURNER, SPOUSE, * Verbal permission to speak to the caregivers and representatives has been obtained from the patient. Yes * Community resources currently utilized None * Please name any agencies selected above. NONE * Additional services required to return to the preadmission environment? No * Can the patient safely return to the preadmission environment? Yes * Has this patient been hospitalized within the prior 30 days at any hospital? No Coverage Notice Reviewer: [email or web address] - Alverto Vora Notice Issued Date-Time: 06/20/2018 9:00 Notice Type: IM Discharge Notice Notice Delivered To: Patient Relationship to Patient: Physician Office Specialist Name: Delivery Method: HAND - Hand Delivered Noemi Days: Prior Verbal Notification: Recipient Understood Notice: Yes Recipient Signature: Yes Med Rec Note Co-signed by Attending: Coverage Notice Comment: Last DP export: 06/19/18 1:15 p Patient Name: JOB TURNER Page [id number] at 1014 All edits/amendments must be made on the electronic document DICTATION DATE: 06/20/18 1014 MUSIC PROMOTER: HESHAM 06/20/18 1014 RPT#: [id number] DC DATE: STATUS: ADM IN [facility] [address] [place] [address] END OF REPORT
--- NOTE | 2018-06-20 11:58 | MORECARE ---
CASE MANAGEMENT DISCHARGE SUMMARY PATIENT: JOB TURNER UNIT: [id number] ADM DATE: 06/17/18 AGE: 62 : [birth year] SEX: F ROOM/BED: D.2103 AUTHOR: YARELI AGUILA PHYSICIAN: REFERRING PHYSICIAN: JAYLA ZARCO MD DATE OF SERVICE: 06/20/18 Discharge Plan Patient Name: JOB TURNER Facility: [facility]:[place] : 1955 Planned Disposition: Outpatient clinics\\services (Programs) Anticipated Discharge Date: 06/20/18 Discharge Date: Expected LOS: 3 Initial Reviewer: [id number] Initial Review Date: 06/20/2018 Generated: 06/20/18 12:58 pm Comments DCP- Discharge Planning Updated by [id number]: Alverto Vora on 06/20/18 9:[address] Patient Name: JOB TURNER Encounter No: [id number] : 1955 Primary Insurance: [facility] [employer] Anticipated DC Date: 06-20-2018 Planned Disposition: Outpatient clinics\\services (Programs) External Planned Provider: [facility] DCP follow-up note: CM ADVISED THAT PT WILL NOT TRANSFER TO [facility], BUT WILL TO [facility] CLINIC AFTER HOSPITAL DISCHARGE TODAY FOR FOLLOW UP CARE. CM SPOKE TO PT AND SPOUSE, BOTH IN AGREEMENT WITH PLAN. IMPORTANT MESSAGE FROM MEDIARE PROVIDED AND EXPLAINED. BRIE RODAS NOTIFIED. AUTOMATIC LINE SET UP MECHANIC NURSE PREVIOUSLY AWARE. ALVERTO VORA, CASE MANAGEMENT DCP- Discharge Planning Updated by [id number]: Alverto Vora on 06/19/18 1:[address] Patient Name: JOB TURNER Admission Status: ER Accout number: [id number] Admission Date: 06-17-2018 : 1955 Admission Diagnosis: Attending: JAYLA ZARCO Current LOS: 2 Anticipated DC Date: Planned Disposition: Home Primary Insurance: [facility] [employer] Discharge Planning Comments: CM SPOKE TO DR. BARONE WHO INFORMED CM THAT PT WILL NEED TRANSFER TO [facility] FOR X [facility] INSPECTOR - ONC CARE. CM MET WITH PT AND SPOUSE IN ROOM TO DISCUSS DISCHARGE PLANNING AND NEEDS. JOB TURNER provided verbal consent to discuss current and ongoing needs with/in the presence of: SPOUSE, ALHAJI. PT REPORTS LIVING AT HOME INDEPENDENTLY WITH SPOUSE. PT HAS CANE AND WALKER THAT SHE DOES NOT USE AND HAS NO MEDICAL EQUIPMENT PROVIDER PREFERENCE. PT HAS NO OUTSIDE SERVICES ASSISTING IN THE HOME. CM DISCUSSED AVAILABILITY OF HOME HEALTH, REHAB SERVICES AND MEDICAL EQUIPMENT. PT DENIES DISCHARGE NEEDS, REPORTS HER SPOUSE WILL PICK HER UP FOR DISCHARGE HOME. CM DISCUSSED TRANSFER TO [facility], PT REPORTS HAVING DISCUSSED WITH DOCTORS AND IS IN AGREEMENT FOR TRANSFER TO [facility]. CM WAITING DOCTORS TO DETERMINE IF TRANSFER TO [facility] IS NECESSARY AND MAKE NECESSARY ARRANGEMENTS FOR TRANSFER IF NEEDED. Director Oracle: Alverto Vora DCP- Discharge Planning Updated by [id number]: Belinda Rios on 06/19/18 10:[address] @ 5076, CALL TO THE MD CALL CENTER AT [facility] ([phone]) FOR POSSIBLE TRANSFER TO X R[facility] INSPECTOR, ONCOLOGY SERVICES FOR SUSPICIOUS OVARIAN/FALLOPIAN MALIGNANCY. DR IRWIN AND DR BARONE FEEL THAT THE INTERVENTION SHE NEEDS CAN NOT BE PROVIDED HERE (I SPOKE WITH DEXTER ASIF RNKIESELGUHR REGENERATOR OPERATOR AND RECEIVED ADMINISTRATION APPROVAL UNDER MICHAEL COVARRUBIAS NAME). @ 1120 I SPOKE WITH SOFI WHO TOOK INFORMATION AND THEN I WAS TRANSFERRED TO MICHELLE ENRIQUE WHO TOOK DOWN CLINICAL INFORMATION AND DR BARONE'S INFORMATION (PER HER REQUEST IF DR IRWIN COULD NOT BE REACHED TO DO- SEE PREVIOUS NOTE). SHE STATED THAT SHE WILL SEE IF THE NURSE PRACTITIONER WANTED TO ACCEPTED, AND IF SO SHE WILL PUT HER IN CONTACT WITH DR BARONE AND THEN CALL ME BACK FOR INFORMATION TO FAX. I WILL AWAIT RETURN CALL. DCP- Discharge Planning Updated by [id number]: Belinda Rios on 06/19/18 8:[address] BARONE CAME TO [facility] ASKING US TO INITIATE TRANSFER TO [facility] REQUESTED IN DR IRWIN'S NOTE. SHE STATED SHE ALREADY TALKED TO BRIE MAR AND WE NEED TO GO AHEAD AND GET HER OUT. SHE STATED THAT IF FOR SOME REASON DR IRWIN WILL NOT DO THE DOC-TO-DOC, THEN SHE WOULD, BUT TO PLEASE TRY HIM FIRST. SHE DID SIGN THE PMS FORM FOR TRANSFER. I PLACED A CALL TO DR. IRWIN'S OFFICE, INITIALLY I PRESSED #3 TO SPEAK TO HIS NURSE KONSTANTIN, AND HER VOICEMAIL STATED THAT CALLS WOULD BE RETURNED WITHIN 48 HOURS. I HUNG UP AND CALLED THE OFFICE, PRESSING 0 TO TALK TO THE TEENAGE PROGRAM DIRECTOR, AND SHE STATED THAT BOTH THE DOCTOR AND HIS NURSE WERE BUSY AND I WOULD HAVE TO JUST LEAVE A MESSAGE. I EXPLAINED THAT I DIDN'T DO THAT IN THE FIRST PLACE BECAUSE IT SAID CALLS WOULD BE RETURNED IN 48 HOURS AND WE WERE WORKING ON TRANSFERING THIS PATIENT. SHE STATED, "THAT IS ONLY IF YOU WANT TO TALK TO THE DOCTOR, KONSTANTIN WILL RETURN YOUR CALL SOONER THAN THAT". I LEFT A MESSAGE @ 0917. I WILL WAIT FOR A RETURN CALL, BUT IF NO CALL BACK RECEIVED WITHIN 1.5 HOURS, I WILL PROCEED WITH TRANSFER USING DR BARONE THE DOCTOR FOR DOC-TO-DOC. DCPIA - Discharge Planning Initial Assessment Updated by [id number]: Alverto Vora on 06/19/18 1:50 pm * Is the patient Alert and Oriented? Yes * How many steps to enter\\exit or inside your home? * PCP [facility] [place] * Pharmacy [facility] [place] * Preadmission Environment Home with Family * ADLs Independent * Equipment Cane Walker * Other Equipment NO MEDICAL EQUIPMENT PROVIDER PREFERENCE * List name and contact numbers for known caregivers / representatives who currently or will assist patient after discharge: ALHAJI TURNER, SPOUSE, * Verbal permission to speak to the caregivers and representatives has been obtained from the patient. Yes * Community resources currently utilized None * Please name any agencies selected above. NONE * Additional services required to return to the preadmission environment? No * Can the patient safely return to the preadmission environment? Yes * Has this patient been hospitalized within the prior 30 days at any hospital? No Coverage Notice Reviewer: [id number] - Alverto Vora Notice Issued Date-Time: 06/20/2018 9:00 Notice Type: IM Discharge Notice Notice Delivered To: Patient Relationship to Patient: Midwife Practitioner Name: Delivery Method: HAND - Hand Delivered Noemi Days: Prior Verbal Notification: Recipient Understood Notice: Yes Recipient Signature: Yes Med Rec Note Co-signed by Attending: Coverage Notice Comment: Last DP export: 06/20/18 9:14 a Patient Name: JOB TURNER Page [id number] at 1158 All edits/amendments must be made on the electronic document DICTATION DATE: 06/20/18 1158 EELER: HESHAM 06/20/18 1158 RPT#: [id number] DC DATE: STATUS: ADM IN [facility] [address] [place] [address] END OF REPORT
--- NOTE | 2018-06-20 12:26 | NUR ---
D/C INSTRUCTIONS GIVEN TO PT, IV REMOVED AND PT TAKEN TO CAR VIA WHEELCHAIR, SHE IS GOING TO [facility] FOR APPT AT 3 PM TODAY.
[2018-06-21] MEDS ORDERED: CHRONULAC30 ML PO (00:17)
[2018-06-21] MEDS ORDERED: HYDROCODON-ACE1 EAC7 PO (00:17)
[2018-06-21] MEDS ORDERED: ULTRAM50 MG PO (00:17)
== END 2018-06-20 12:27 | disposition home or self-care (01) | DRG 755 ==
LOC: D.ER 23:47 → D.M2 23:57
PROVIDERS: General Practice; Internal Medicine Gastroenterology; Radiology Diagnostic Radiology; ADMIT Internal Medicine Nephrology; ATTEND Internal Medicine Nephrology
PROC: 0W9G3ZZ Drainage of Peritoneal Cavity, Percutaneous Approach (ICD-10-PCS; principal; 2018-06-19 16:00)
DX: C56.9 Malignant neoplasm of unspecified ovary (principal); C78.6 Secondary malignant neoplasm of retroperitoneum and peritoneum; R18.0 Malignant ascites; J98.11 Atelectasis; J90 Pleural effusion, not elsewhere classified; I10 Essential (primary) hypertension; E78.5 Hyperlipidemia, unspecified; I25.10 Atherosclerotic heart disease of native coronary artery without angina pectoris; K21.9 Gastro-esophageal reflux disease without esophagitis; R68.81 Early satiety

== ENCOUNTER 2018-06-20 21:29 | Emergency (ER) | payer MEDICARE ==
[~2018-06-20] VITALS: Ht 152.4 cm; Wt 70.5 kg
[~2018-06-20 21:29] MED LIST changes: +EFFEXOR XR75 MG PO
[2018-06-20 21:45] VITALS: Ht 152.4 cm; Wt 70.5 kg
[2018-06-21] MEDS ORDERED: HYDROCODON-ACE1 EAC7 PO (00:17)
[2018-06-21] MEDS ORDERED: CHRONULAC30 ML PO (00:17)
[2018-06-21] MEDS ORDERED: ULTRAM50 MG PO (00:17)
[2018-06-21 00:38] VITALS: BP 120/76
== END 2018-06-21 00:40 | disposition home or self-care (01) ==
LOC: D.ER 21:29
DX: J90 Pleural effusion, not elsewhere classified (principal); R18.8 Other ascites; C80.1 Malignant (primary) neoplasm, unspecified; K59.00 Constipation, unspecified

== ENCOUNTER 2018-07-06 04:25 | Observation (INO) | payer MEDICARE ==
[~2018-07-06] VITALS: Ht 152.4 cm; Wt 65.8 kg
--- NOTE | ~2018-07-06 | HEMODYNAMI ---
PATIENT:JOB TURNER MEDICAL RECORD: [id number] : 51 [facility] ADMISSION DATE: 07/06/18 Generatedon:07/06/201813:42 Patient name: JOB TURNER Patient #: [id number] SSN: : 1955 Date of study: 07/06/2018 Page: Of Hemodynamic Procedure Report Patient Data Patient Demographics Procedure consent was obtained First Name: JOB Gender: Female Last Name: JOHNNY : 1955 Middle Initial: A Age: 62 year(s) Patient #: [id number] Race: Unknown Additional ID: [id number] Contact details Address: [place] [address] State: [place] City: [place] Zip code: [address] Past Medical History Allergies Allergen Reaction Date Comments Reported Codeine 06/12/2018 Other allergy 07/06/2018 CODIENE, STATINS Admission Admission Data Admission Date: 07/06/2018 Admission Time: 5:34 Room #: D.2116 Procedure Procedure Types Cath Procedure Peripheral Cath Diagnostic Procedure Miscellaneous PARACENTESIS WITH GUIDE Procedure Description Procedure Date Procedure Date: 07/06/2018 Procedure Start Time: 13:14 Procedure Staff Name Function Apryl Pichardo MD Performing Physician Harvinder Alex RT Monitor Litzy Valenzuela RN Nurse Hemodynamics Rest Heart Rate: 83 (bpm) Snapshots Pre Cath Intra NCS Post Cath Vital Signs Time Heart Resp SPO2 etCO2 NIBP (mmHg) Rhythm Pain Sedation Rate (ipm) (%) (mmHg) Status Level (bpm) 13:03:44 84 3 92 0 103/89(100) NSR 0 (11) 10(A) , No pain 13:07:46 85 37 94 112/72(90) NSR 0 (11) 10(A) , No pain 13:11:54 81 18 97 113/63(98) NSR 0 (11) 10(A) , No pain 13:15:58 83 12 100 109/75(90) NSR 0 (11) 10(A) , No pain 13:19:59 81 11 98 113/80(96) NSR 0 (11) 10(A) , No pain 13:24:01 83 10 97 113/84(110) NSR 0 (11) 10(A) , No pain 13:28:03 85 8 98 108/83(102) NSR 0 (11) 10(A) , No pain 13:32:08 83 11 96 125/63(83) NSR 0 (11) 10(A) , No pain 13:36:16 85 9 98 117/73(92) NSR 0 (11) 10(A) , No pain 13:40:24 83 16 98 110/71(87) NSR 0 (11) 10(A) , No pain Procedure Log Time Note 12:53:26 Harvinder Alex RT (R) (CV) sent for patient. Start room use. 12:54:21 Time tracking: Regular hours (M-F 7:00 - 5:00) 12:54:36 Plan of Care:Hemodynamics will remain stable., Cardiac rhythm will remain stable., Comfort level will be maintained., Respiratory function will remain adequate., Patient/ family verbilizes understanding of procedure., Procedure tolerated without complication., Recovers from procedure without complications.. 12:54:52 Patient arrived from Med II to IR. Patient remains on bed/stretcher for procedure. 12:55:00 Correct patient and procedure confirmed by team. 12:55:04 Signed procedure consent form obtained from patient. 12:55:09 ECG and BP/O2 sat monitors applied to patient. 12:55:14 Full Disclosure recording started 12:55:19 - 12:55:38 H&P Date Dictated: 07/06/2018 Within 30 days and on chart.. 12:55:42 Pre-procedure instructions explained to patient. 12:55:46 Pre-op teaching completed and patient verbalized understanding. 12:55:51 Family in patients room. 12:55:56 Patient NPO since Midnight. 12:56:41 Patient allergic to Other allergyCODIENE, STATINS 12:56:49 Is the patient allergic to Iodine/contrast media? No. 12:56:55 Is patient on blood thinner?Yes 12:57:11 ACC The patient was administered the following blood thiners within the last 24 hours: ACCPlavix 12:57:14 Patient diabetic? No. 12:57:33 ----Pre-sedation anethsthesia assessment.---- 12:57:40 Previous problem with sedation/anesthesia? No ? 12:57:43 Snore? Yes 12:57:45 Sleep apnea? No 12:57:48 Deviated septum? No 12:57:49 Opens mouth fully? Yes 12:57:51 Sticks out tongue? Yes 12:57:56 Dentures? No ? 12:57:59 Airway obstruction? No ? 12:58:03 - 12:58:25 IV patent on arrival in right forearm with 0.9% NaCl at KVO. 12:58:43 Right abdomen area was prepped with chlora-prep and draped in sterile fashion 12:58:49 Alarms reviewed by Jonna Carrillo 12:58:50 Sharps counted by scrub and verified by RRebeccaNRebecca 12:58:54 - 13:02:46 Vital chart was started 13:02:48 Baseline sample Acquired. 13:12:51 Physician arrived 13:12:53 --------ALL STOP TIME OUT------ 13:12:55 Final Timeout: patient, procedure, and site verified with staff and physician. All members of the team are in agreement. 13:13:02 Right abdomen site verified by team. 13:13:14 Fire Safety Assessment: A--An alcohol-based skin anteseptic being used preoperatively., C--Open oxygen or nitrous oxide is being used. 13:13:23 Sedation plan: IV Moderate Sedation Medication:Versed, Fentanyl 13:13:52 Procedure started. 13:14:04 Local anesthetic to Abdominal area with Lidocaine 1% by Apryl Pichardo MD.INITIAL ACCESS ONLY 13:14:10 [id number] 8FR CATH DRAIN TRAY opened to sterile field. 13:34:32 Procedure ended.(Physican Out) 13:35:02 3.3 LITERS DRAINED 13:35:30 Dermabond Pen opened to sterile field. 13:35:31 Tegaderm 4 x 4 ([id number]) opened to sterile field. 13:38:41 Sharps counted by scrub and verified by R.N. 13:38:44 Insertion/operative site no bleeding no hematoma. 13:38:51 Post-op/insertion site Right Abdominal area dressed using a 4 x 4 and Tegaderm. 13:39:10 Post Abdominal area:stable 13:39:16 Post procedure instruction explained to patient.Patient verbalizes understanding. 13:39:18 Procedure and supply charges have been captured, reviewed, submitted an d are correct. 13:41:23 Report given to [facility] II. 13:41:28 Patient transfered to [facility] with Bed. 13:42:14 Vital chart was stopped Device Usage Item Name Manufacture Quantity Catalog Hospital Part Current Minimal Lot# / Number Charge Number Stock Stock Serial# Code [id number] CareFusion 1 [id number] 8FR CATH DRAIN TRAY Dermabond Pen Ethicon 1 [id number] 5 Tegaderm 4 x 4 3M 1 [id number] ([id number]) Signature [employer] [place] Stage Time Signature Unsigned Intra-Procedure 07/06/2018 Harvinder 1:42:09 PM Shuffield RT (R) (CV) Signatures Monitor : Harvinder Signature : Ruddyield RT Date : Time : [id number] [place] [address]
[~2018-07-06 04:25] MED LIST changes: +CHRONULAC30 ML PO; +HYDROCODON-ACE1 EAC7 PO; +ULTRAM50 MG PO
[2018-07-06 05:26] LABS: BASOPHILS 0.2 % (0-2); EOSINOPHILS 1.1 % (0-7); HEMATOCRIT 40.9 % (36.0-48.0); HEMOGLOBIN 13.3 g/dL (12-16); IMMATURE GRANULOCYTES 1.5 % (0-5); LYMPHOCYTES 6.4 % (15-50); MCH 25.9 pg (26.0-34.0); MCHC 32.5 g/dL (31.0-37.0); MCV 79.6 fL (80.0-100.0); MEAN PLATELET VOLUME 9.4 fL (7.4-10.4); MONOCYTES 16.7 % (2-11); NEUTROPHILS 74.1 % (40-80); PLATELET COUNT 473 10x3/uL (130-400); RBC 5.14 10x6/uL (4.00-5.40); WBC 13.6 10x3/uL (4.8-10.8)
[2018-07-06 05:35] LABS: APPEARANCE HAZY (CLEAR); COLOR YELLOW (YELLOW); NITRITE NEGATIVE (NEGATIVE); PROTEIN NEGATIVE (NEGATIVE)
[2018-07-06 05:36] LABS: BACTERIA MANY /hpf (NONE SEEN); BILIRUBIN NEGATIVE (NEGATIVE); EPITHELIAL CELLS 0-5 /hpf (0-5); GLUCOSE NEGATIVE (NEGATIVE); KETONE SMALL mg/dL (NEGATIVE); UROBILINOGEN NORMAL (NORMAL); WHITE CELLS - URINE 25-50 /hpf (0-5)
[2018-07-06 05:40] LABS: APTT 28.1 SECONDS (22.8-39.4); INR 1.06 (0.85-1.17); PROTIME 13.3 SECONDS (11.6-15.0)
[2018-07-06 05:45] LABS: ALBUMIN 2.2 g/dL (3.4-5.0); ALKALINE PHOSPHATASE 75 U/L (46-116); ALT (SGPT) 15 U/L (10-68); BILIRUBIN - TOTAL 0.28 mg/dL (0.2-1.3); CALC OSMOLALITY 273 mosm/kg (275-300); CALCIUM 8.2 mg/dL (8.5-10.1); CARBON DIOXIDE 23.5 mmol/L (21.0-32.0); CHLORIDE - SERUM 101 mmol/L (98-107); CREATININE - SERUM 0.6 mg/dL (0.6-1.3); GLUCOSE 108 mg/dL (74-106); POTASSIUM - SERUM 3.6 mmol/L (3.5-5.1); PROTEIN - SERUM 6.5 g/dL (6.4-8.2); SODIUM 136 mmol/L (136-145); UREA NITROGEN 15 mg/dL (7-18); eGFR NON AFRICAN AMERICAN > 90 mL/min (90-120)
[2018-07-06] MEDS ORDERED: PLAVIX75 MG PO (07:02)
[2018-07-06] MEDS ORDERED: BAYER CHEWABLE81 MG PO (07:03)
[2018-07-06 08:07] VITALS: BP 142/84; BMI 28.3
[2018-07-06 09:37] VITALS: BP 118/75
[2018-07-06 12:27] VITALS: BP 105/66; Ht 152.4 cm; Wt 65.8 kg
[2018-07-06] MEDS ORDERED: LEVOFLOXACIN500 MG PO (14:41)
== END 2018-07-06 17:11 | disposition home or self-care (01) ==
LOC: D.ER 04:25 → D.M2 05:34 → OBSVTIME 05:34 → D.M2 17:11
PROVIDERS: Emergency Medicine; ADMIT Family Medicine; ATTEND Family Medicine
DX: R18.8 Other ascites (principal); N39.0 Urinary tract infection, site not specified; J90 Pleural effusion, not elsewhere classified; C56.9 Malignant neoplasm of unspecified ovary; I11.0 Hypertensive heart disease with heart failure; I50.9 Heart failure, unspecified; I25.10 Atherosclerotic heart disease of native coronary artery without angina pectoris; F32.9 Major depressive disorder, single episode, unspecified; F41.9 Anxiety disorder, unspecified

== ENCOUNTER 2018-11-27 13:01 | Observation (INO) | payer MEDICARE ==
[~2018-11-27] VITALS: Ht 152.4 cm; Wt 62.7 kg
[~2018-11-27 13:01] MED LIST changes: +LEVOFLOXACIN500 MG PO
[2018-11-27 14:29] LABS: BASOPHILS 0.5 % (0-2); EOSINOPHILS 0.5 % (0-7); HEMATOCRIT 31.4 % (36.0-48.0); HEMOGLOBIN 10.2 g/dL (12-16); IMMATURE GRANULOCYTES 3.8 % (0-5); LYMPHOCYTES 14.2 % (15-50); MCH 27.6 pg (26.0-34.0); MCHC 32.5 g/dL (31.0-37.0); MCV 85.1 fL (80.0-100.0); MEAN PLATELET VOLUME 8.8 fL (7.4-10.4); MONOCYTES 19.4 % (2-11); NEUTROPHILS 61.6 % (40-80); PLATELET COUNT 525 10x3/uL (130-400); RBC 3.69 10x6/uL (4.00-5.40); RDW 16.9 % (11.5-14.5); WBC 9.8 10x3/uL (4.8-10.8)
[2018-11-27 14:45] LABS: ALBUMIN 2.4 g/dL (3.4-5.0); ALKALINE PHOSPHATASE 71 U/L (46-116); ALT (SGPT) 19 U/L (10-68); BILIRUBIN - TOTAL 0.23 mg/dL (0.2-1.3); CALC OSMOLALITY 275 mosm/kg (275-300); CALCIUM 9.2 mg/dL (8.5-10.1); CARBON DIOXIDE 27.6 mmol/L (21.0-32.0); CHLORIDE - SERUM 100 mmol/L (98-107); CREATININE - SERUM 0.6 mg/dL (0.6-1.3); GLUCOSE 117 mg/dL (74-106); POTASSIUM - SERUM 3.4 mmol/L (3.5-5.1); PROTEIN - SERUM 6.6 g/dL (6.4-8.2); SODIUM 137 mmol/L (136-145); UREA NITROGEN 14 mg/dL (7-18); eGFR NON AFRICAN AMERICAN > 90 mL/min (90-120)
--- NOTE | 2018-11-27 14:45 | NUR ---
CONFIRMED WITH PT THAT SHE DOES NOT HAVE AN ALLERGY TO ZOFRAN. NOTIFIED THAT PT REQUESTING NAUSEA MEDICATIONS. HE ORDERED 8MG ZOFRAN IVP.
[2018-11-27 14:49] LABS: INR 1.09 (0.85-1.17); PROTIME 13.6 SECONDS (11.6-15.0)
[2018-11-27 14:50] LABS: APTT 58.8 SECONDS (22.8-39.4)
--- NOTE | 2018-11-27 17:27 | NUR ---
CALLED REPORT TO KAREN BERG. SHE ADVISED ROOM WAS CLEAN BUT THEY WERE GETTING ANOTHER BED FOR THE ROOM. ADVISED SHE WOULD CALL BACK WHEN ROOM WAS READY.
[2018-11-27 20:00] VITALS: BP 119/74
--- NOTE | 2018-11-27 21:00 | NUR ---
A/O WITH NO SIGNS OF DISTRESS NOTED. ABDOMEN DISTENDED BUT NON TENDER UPON PALPATION. IV TO THE RT FOREARM SL. DENIES PAIN OR OTHER NEEDS AT THIS TIME. CONTIUE WITH PLAN OF CARE.
[2018-11-28 04:00] VITALS: BP 163/114
[2018-11-28 05:41] VITALS: BP 113/74; Ht 152.4 cm; Wt 62.7 kg
[2018-11-28 06:46] LABS: CALC OSMOLALITY 275 mosm/kg (275-300); CARBON DIOXIDE 29.4 mmol/L (21.0-32.0); CHLORIDE - SERUM 99 mmol/L (98-107); CREATININE - SERUM 0.7 mg/dL (0.6-1.3); GLUCOSE 104 mg/dL (74-106); POTASSIUM - SERUM 3.8 mmol/L (3.5-5.1); SODIUM 137 mmol/L (136-145); UREA NITROGEN 17 mg/dL (7-18); eGFR NON AFRICAN AMERICAN 89 mL/min (90-120)
[2018-11-28 06:57] LABS: INR 1.06 (0.85-1.17); PROTIME 13.3 SECONDS (11.6-15.0)
[2018-11-28 06:58] LABS: APTT 58.8 SECONDS (22.8-39.4)
[2018-11-28 07:29] LABS: HEMATOCRIT 33.4 % (36.0-48.0); HEMOGLOBIN 10.6 g/dL (12-16); MCH 27.7 pg (26.0-34.0); MCHC 31.7 g/dL (31.0-37.0); MEAN PLATELET VOLUME 9.1 fL (7.4-10.4); PLATELET COUNT 613 10x3/uL (130-400); RBC 3.83 10x6/uL (4.00-5.40); WBC 10.7 10x3/uL (4.8-10.8)
[2018-11-28 07:31] LABS: MCV 87.2 fL (80.0-100.0)
[2018-11-28 09:08] VITALS: BP 108/75
[2018-11-28 10:00] LABS: ANISOCYTOSIS OCC; EOSINOPHILS 1 % (0-7); LYMPHOCYTES 11 % (15-50); MONOCYTES 24 % (2-11); NEUTROPHILS 50 % (40-80); PLATELET ESTIMATE INCREASED
--- NOTE | 2018-11-28 10:55 | NUR ---
IV THERAPY DC'ED. TIP INTACT. DISCHARGE INSTRUCTIONS GIVEN. PATIENT AND VERBALIZED UNDERSTANDING. WHEELED OUT BY VOLUNTEERS
== END 2018-11-28 10:56 | disposition other institution (70) ==
LOC: D.ER 13:01 → D.MS 17:22 → OBSVTIME 17:43 → D.MS 11-28 10:56
PROVIDERS: Emergency Medicine; Specialist; ADMIT Internal Medicine Nephrology; ATTEND Internal Medicine Nephrology
DX: C56.2 Malignant neoplasm of left ovary (principal); C79.9 Secondary malignant neoplasm of unspecified site; R18.8 Other ascites; I10 Essential (primary) hypertension; Z95.1 Presence of aortocoronary bypass graft